=== PATIENT | male | born 1975 | race Two or more races ===

== ENCOUNTER 2020-03-07 13:13 | Emergency (ER) | payer OTHER ==
[2020-03-07] MEDS ORDERED: Lidocaine 1% 10 ML MDV INJECT ONE (13:44)
--- NOTE | 2020-03-07 13:49 | EDM.PDOC ---
ED HPI GENERAL MEDICAL PROBLEM - General Chief Complaint: Upper Extremity Injury/Pain Stated Complaint: WRIST INJURY Time Seen by Provider: 03/07/20 13:27 Source of Information: Reports: Patient, Provider (Dr. Harris from [facility]), RN Notes Reviewed History Limitations: Reports: No Limitations - History of Present Illness INITIAL COMMENTS - FREE TEXT/NARRATIVE: Patient is a 44-year-old male who presents to the ED for further evaluation of his right wrist injury. He was evaluated by Dr. Harris at the occupational health clinic, and was found to have a distal radius fracture that needed reduction per their orthopedic provider, Dr. Quintana. Patient notes that he was at work last night, and fell approximately 10 feet and around 930. He finished his shift at midnight, went home, and was told to put ice on his wrist to see if that made it feel a bit better. He has been using Tylenol and ibuprofen for pain management, his last dose of 600 mg ibuprofen was roughly at noon. He was placed in a cock-up splint from the occupational health clinic and sent here for reduction and further evaluation. Patient's not complaining of pain or other injuries at this time. He did not get knocked out nor did he lose consciousness. Patient denies any other sick-like symptoms, fever/chills, cough/shortness of breath, nausea/vomiting/diarrhea. Patient notes that he is right-hand dominant. 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 at 0600 Right Wrist Pain Score (Numeric/FACES): 2 - Related Data Allergies Allergy/AdvReac Type Severity Reaction Status Date / Time No Known Allergies Allergy Verified 03/07/20 13:24 Home Meds: Home Meds Acetaminophen/HYDROcodone [[place] 325-5 MG] 1 tab PO Q6H PRN #15 tablet 03/07/20 [Rx] Past Medical History HEENT History: Reports: Hard of Hearing Other HEENT History: had episode of hearing loss last year, that resolved after seeing an ENT in [place] Cardiovascular History: Reports: None Respiratory History: Reports: None Gastrointestinal History: Reports: Cholelithiasis Genitourinary History: Reports: Renal Calculus Musculoskeletal History: Reports: None Neurological History: Reports: None Psychiatric History: Reports: None Endocrine/Metabolic History: Reports: None Hematologic History: Reports: None Immunologic History: Reports: None Oncologic (Cancer) History: Reports: None Dermatologic History: Reports: None - Infectious Disease History Infectious Disease History: Reports: None - Past Surgical History Head Surgeries/Procedures: Reports: None HEENT Surgical History: Reports: None GI Surgical History: Reports: Cholecystectomy Male Surgical History: Reports: None Social & Family History - Family History Family Medical History: No Pertinent Family History HEENT: Reports: None Cardiac: Reports: None Respiratory: Reports: None GI: Reports: None : Reports: None OBGYN: Reports: None Musculoskeletal: Reports: None Neurological: Reports: None Psychiatric: Reports: None Endocrine/Metabolic: Reports: Hypothyroidism Hematologic: Reports: None Immunologic: Reports: None Dermatologic: Reports: None Oncologic: Reports: None - Tobacco Use Tobacco Use Status *Q: Never Tobacco User - Caffeine Use Caffeine Use: Reports: Coffee, Tea - Recreational Drug Use Recreational Drug Use: No Review of Systems - Review of Systems Review Of Systems: Comprehensive ROS is negative, except as noted in HPI. ED EXAM, GENERAL - Physical Exam Exam: See Below Exam Limited By: No Limitations General Appearance: Alert, WD/WN, No Apparent Distress Respiratory/Chest: No Respiratory Distress, Lungs Clear, Normal Breath Sounds, No Accessory Muscle Use, Chest Non-Tender Cardiovascular: Normal Peripheral Pulses, Regular Rate, Rhythm, No Edema Peripheral Pulses: 2+: Radial (L), Radial (R) Extremities: Normal Capillary Refill, Limited Range of Motion (of right wrist d/t pain and swelling), Other (deformity noted at the patient's wrist, appears to be dorsally angulated.) Neurological: Alert, Oriented, Normal Cognition, No Motor/Sensory Deficits Psychiatric: Normal Affect, Normal Mood Skin Exam: Warm, Dry, Intact, Normal Color, No Rash ED TRAUMA EXTREMITY PROCEDURES - Joint Reduction Right Wrist Sedation: Hematoma/Fracture Block Local Anesthesia - Lidocaine (Xylocaine): 1% Plain Local Anesthetic Volume: 3cc Pre-Procedure NV Status: Normal Post-Procedure NV Status: Normal Technique: Traction/Counter Traction (with finger trap device) Number of Attempts: 2 Post-Reduction Imaging: Unacceptably Reduced Joint Reduction Complications: No Joint Reduction Complication Description: The fracture itself appears to be impacted and difficult to reduce in the ER. Dr. Crystal did try x [address], but it did not end up moving much after both attempts. Progress/Comments: Performed with Dr. Crystal in room Course - Vital Signs Last Recorded V/S: Last Vital Signs Temp 98.5 F 03/07/20 13:27 Pulse 73 03/07/20 13:27 Resp 18 03/07/20 13:27 BP 145/100 H 03/07/20 13:27 Pulse Ox 98 03/07/20 13:27 - Orders/Labs/Meds Orders: Active Orders 24 hr Category Date Time Status Wrist 2V Rt [CR] Stat Exams 03/07/20 14:21 Ordered Wrist Comp Min 3V Rt [CR] Stat Exams 03/07/20 14:05 Taken Meds: Medications Discontinued Medications Generic Name Dose Route Start Last Admin Trade Name Freq PRN Reason Stop Dose Admin Lidocaine HCl 10 ml 03/07/20 13:44 03/07/20 14:13 Xylocaine 1% INJECT 03/07/20 13:45 10 ml ONETIME ONE Administration - Re-Assessments/Exams Free Text/Narrative Re-Assessment/Exam: 03/07/20 13:48 Patient presents to the ED for the evaluation of his right wrist injury. X-rays were pushed from the occupational health clinic, this does demonstrate a distal radius fracture, that does appear to be dorsally angulated. Films were reviewed by myself and Dr. Crystal. We will reduce the joint, and get post x- rays and have him follow-up with orthopedics. 03/07/20 14:24 Postreduction films do demonstrate an acceptable reduction. Patient was placed back in the splint that he came over with, and will have him follow-up with Ortho as noted in discharge instructions. Departure - Departure Time of Disposition: 14:36 Disposition: Home, Self-Care 01 Condition: Good Clinical Impression: Distal radius fracture, right Qualifiers: Encounter type: initial encounter Fracture type: closed Fracture morphology: other fracture Qualified Code(s): S52.591A - Other fractures of lower end of right radius, initial encounter for closed fracture - Discharge Information *PRESCRIPTION DRUG MONITORING PROGRAM REVIEWED*: No *COPY OF PRESCRIPTION DRUG MONITORING REPORT IN PATIENT FIDEL: No Prescriptions: Acetaminophen/HYDROcodone [[place] 325-5 MG] 1 tab PO Q6H PRN #15 tablet PRN Reason: Pain Instructions: Closed Reduction for Wrist or Forearm, Care After Referrals: PCP,None [Primary Care Provider] - Forms: ED Department Discharge Additional Instructions: You have been evaluated in the ED for your right wrist injury. Your x-ray demonstrated a distal radius fracture that did need to be reduced (or put back into place). Several attempts at reduction were tried at this ER visit, unfortunately your fracture is somewhat impacted, making this extremely difficult for an open reduction in the ER. It is highly urgent that you follow- up with orthopedics, for possible surgical management. Please use ice as tolerated to the affected area. You may elevate the affected area to provide further relief from swelling. You may take Tylenol 500 mg or ibuprofen 600mg q6 hrs for pain relief. Please do so until you have a tolerable level of pain with activity. Do not exceed 4000mg Tylenol, Do not exceed 3200mg ibuprofen in a 24 hour time period. You were given a prescription for a strong pain medication, hydrocodone/acetaminophen 5/325, please take 1 tab every 6 hours as needed for pain not relieved by Tylenol or ibuprofen alone. Please note this does contain Tylenol in it, so do not take more than 4000 mg in a 24-hour time span. These medications can be addictive, so please take as few as possible to achieve ad equate pain control. These meds can also be quite constipating, recommend that you increase your oral fluid intake and take a stool softener like MiraLAX while taking these medications. It was made known to us, that you have an appointment with Dr. Harris tomorrow for follow-up, please keep this appointment as previously directed. Dr. Harris will get an Ortho follow-up or referral started for you for further management. Please return to ED if your symptoms should change or worsen. Sepsis Event Note (ED) - Evaluation Sepsis Screening Result: No Definite Risk - Focused Exam Vital Signs: Vital Signs Temp Pulse Resp BP Pulse Ox 03/07/20 13:27 98.5 F 73 18 145/100 H 98 - My Orders Last 24 Hours: My Active Orders 03/07/20 14:05 Wrist Comp Min 3V Rt [CR] Stat 03/07/20 14:21 Wrist 2V Rt [CR] Stat - Assessment/Plan Last 24 Hours: My Active Orders 03/07/20 14:05 Wrist Comp Min 3V Rt [CR] Stat 03/07/20 14:21 Wrist 2V Rt [CR] Stat
--- NOTE | 2020-03-07 14:43 | CR ---
Right wrist: 3 views of the right wrist were obtained. Comparison: No previous wrist study. Distal radial fracture is seen which is slightly comminuted. Minimal posterior impaction is seen with minimal posterior displacement. No additional fracture or other abnormality is appreciated. Soft tissue swelling is present. Impression: 1. Distal radial fracture showing slight posterior impaction with minimal posterior displacement of the distal fragment. 2. Soft tissue swelling. Diagnostic code #3
--- NOTE | 2020-03-07 14:47 | CR ---
Right wrist: Single lateral view of the right wrist was obtained. Comparison: Previous study performed on the same day (1:53 PM). Slightly displaced distal radial fracture is seen by approximately 3.6 mm. Mild posterior impaction is again noted. Soft tissue swelling is noted. Impression: 1. Findings as noted above. No change from previous study is seen. Diagnostic code #3
== END 2020-03-07 14:48 | disposition home or self-care (01) ==
LOC: JD.ED 13:13
DX: S52.591A Other fractures of lower end of right radius, initial encounter for closed fracture (principal); W17.89XA Other fall from one level to another, initial encounter; Y99.0 Civilian activity done for income or pay
CPT/HCPCS: 25605; 73100; 73110; 99283; J2001